=== PATIENT | male | born 1980 | race Two or more races ===

== ENCOUNTER 2022-09-14 14:23 | Emergency (ER) | payer SELFPAY ==
[~2022-09-14] VITALS: Ht 170.2 cm; Wt 83.0 kg
[2022-09-14] MEDS ORDERED: DEXAMETHASONE SOD PHOSPHATE 10 MG/ML VIAL IM ONE (16:30)
[2022-09-14] MEDS ORDERED: HYDROCODONE/APAP 5/325MG TABLET PO ONE (16:30)
[2022-09-14] MEDS ORDERED: IBUP-1957 PO (16:55)
[2022-09-14] MEDS ORDERED: METH4TAB3 PO (16:55)
[2022-09-14] MEDS ORDERED: CYCL5TAB PO (16:55)
[2022-09-14] MEDS ORDERED: DEXAMETHASONE SOD PHOSPHATE 10 MG/ML VIAL ONE (16:58)
[2022-09-14] MEDS ORDERED: HYDROCODONE/APAP 5/325MG TABLET ONE (16:58)
--- NOTE | 2022-09-14 17:05 | NUR ---
[facility] PO AND DECADRON IM ADMINISTERED INDICATED, ANNABEL WELL
[2022-09-14 18:02] VITALS: BP 124/70
--- NOTE | 2022-09-14 18:04 | NUR ---
Patient discharged to home in stable condition. Written and verbal after care instructions given. Patient verbalizes understanding of instruction.
== END 2022-09-14 18:03 | disposition home or self-care (01) ==
LOC: ER 14:23
DX: M54.42 Lumbago with sciatica, left side (principal)
CPT/HCPCS: 99283; 96372; J1100